=== PATIENT | male | born 1990 | race Caucasian/White ===

== ENCOUNTER 2017-11-20 16:22 | Emergency (ER) | payer MEDICAID, SELFPAY ==
[2017-11-20 16:23] VITALS: BP 142/84; PULSE 91; RESP 18; TEMP 36.6; O2SAT 99; BMI 23.1
--- NOTE | 2017-11-20 16:58 | ED.VISSUMM ---
- ER Visit Summary Date of Service: 11/20/17 Chief Complaint: Laceration volar surface left little finger History of Present Illness: The patient is a 27 M who is right-handed presents with laceration volar surface left little finger. This occurred at home with steak knife. Last tetanus immunization was 3-4 years ago. He denies paresthesia, anesthesia motors. He denies limitation of movement. He has no other complaints. Is on no anticoagulant. He does not give history of using easily or bleeding problems. He has no other complaints. Physical Examination: There is a 8 mm superficial laceration volar surface left little finger over the volar fat pad. There is no subungual hematoma. Sensation is normal. Capillary refill is normal. Flexor digitorum superficialis and flexor digitorum profundus are intact. There is no evidence infection. Test Results: None are indicated Emergency Department Course and Treatment: Cleansing of wound, Steri-Stripped and dressing per nursing staff Treatment Plan: Home-going instructions for superficial laceration Disposition: Discharged to home in stable improved condition Impression: 0.8 cm laceration left little finger initial encounter This note was generated with [employer] dictation software. It may contain incorrect words, spelling, and punctuation that were not noted in review of the chart prior to signing ED Disposition - Plan for ED Patient: Disposition: Home or Assisted Living Chief Complaint: Laceration Instructions: ED Laceration Small Superf No Sutr Referrals: Chasity Hood DO [Primary Care Provider] - As Needed
== END 2017-11-20 17:11 | disposition home or self-care (01) ==
PROVIDERS: Emergency Provider Emergency Medicine
DX: S61.217A Laceration without foreign body of left little finger without damage to nail, initial encounter (principal); Z72.0 Tobacco use; W26.0XXA Contact with knife, initial encounter; Y93.89 Activity, other specified; Y92.009 Unspecified place in unspecified non-institutional (private) residence as the place of occurrence of the external cause; Y99.8 Other external cause status
CPT/HCPCS: 99282

== ENCOUNTER 2018-05-21 09:03 | Emergency (ER) | payer BC, MEDICAID, SELFPAY ==
[2018-05-21 09:04] VITALS: BP 129/70; PULSE 71; RESP 17; TEMP 36.7; O2SAT 97; BMI 24.8
--- NOTE | 2018-05-21 09:26 | ED.DCSUM_ITS ---
- ER Visit Summary Date of Service: 05/21/18 Chief Complaint: Back pain History of Present Illness: The patient is a 28 M with low back pain. The pain started this morning. He thinks it was worse after working on his car yesterday no other inciting events. No traumas. No history of this in the past. The pain is over his bilateral lower back and does not radiate. No abdominal pain or GI symptoms. No urinary symptoms. No neurologic symptoms like weakness or numbness. No loss of bowel or bladder control. No rash or other lesions noted. No fever or systemic symptoms. No recent illness. No immune compromise or drug abuse. No history of back surgery. Physical Examination: Afebrile and vital signs unremarkable. The patient appears uncomfortable but is not toxic or in distress. Abdomen soft and nontender. Lumbar spine is diffusely tender to palpation. Bilateral paraspinal muscles are also tender. Overlying skin appears normal. Straight leg raise negative. Strength sensation normal. Test Results: None indicated Emergency Department Course and Treatment: Patient was treated with Norflex and Toradol. He will be discharged with a course of naproxen and Flexeril. He was given a work note. Follow-up with primary care. Return for any new or worsening issues. Treatment Plan: As above Disposition: Discharge Impression: 1. Lumbar back pain This note was generated with [employer] dictation software. It may contain incorrect words, spelling, and punctuation that were not noted in review of the chart prior to signing ED Disposition - Plan for ED Patient: Chief Complaint: Back Referrals: Chasity Hood DO [Primary Care Provider] -
--- NOTE | 2018-05-21 09:26 | ED.DEP ---
ED Disposition - Plan for ED Patient: Chief Complaint: Back Instructions: ED Sprain Strain Lumbar Prescriptions: Naproxen [Naprosyn] 500 mg PO BID #14 tab Cyclobenzaprine [Flexeril] 10 mg PO TID PRN #20 tab PRN Reason: Muscle Spasm Referrals: Chasity Hood DO [Primary Care Provider] -
[2018-05-21] MEDS: Ketorolac 60 MG/2 ML Vial IM (09:29)
[2018-05-21] MEDS: Orphenadrine 60 MG/2 ML Ampul IM (09:29)
--- OUTSIDE RECORDS SUMMARY | 2018-08-22 12:53 | XMS RPT_ITS ---
:1990 Author Organization [facility] Care Team Providers Name Role Phone Chasity Hood Primary Care Unavailable Eliseo Owens Attending Unavailable Hiren Ortiz Attending Unavailable Chasity Hood Primary Care Unavailable PROBLEMS PROBLEMS No Problem Records FoundPROCEDURES PROCEDURES No Procedure Records FoundRESULTS RESULTS EMERGENCY DEPARTMENT Observed: 05/21/2018 Status: F Source: SEDALIA SUMMARY 9:44 AM [facility] Medical Records Department [address] [place] [id number] Emergency Department Summary 05/21/18 0924 MR#: [id number] Acct: [id number] Name: ASHANTI RUTHERFORD Rep #: [id number] : 1990 28 From: Eliseo Owens MD PCP: Chasity Hood DO Status: PRE ER - ER Visit Summary Date of Service: 05/21/18 Chief Complaint: Back pain History of Present Illness: The patient is a 28 M with low back pain. The pain started this morning. He thinks it was worse after working on his car yesterday no other inciting events. No traumas. No history of this in the past. The pain is over his bilateral lower back and does not radiate. No abdominal pain or GI symptoms. No urinary symptoms. No neurologic symptoms like weakness or numbness. No loss of bowel or bladder control. No rash or other lesions noted. No fever or systemic symptoms. No recent illness. No immune compromise or drug abuse. No history of back surgery. Physical Examination: Afebrile and vital signs unremarkable. The patient appears uncomfortable but is not toxic or in distress. Abdomen soft and nontender. Lumbar spine is diffusely tender to palpation. Bilateral paraspinal muscles are also tender. Overlying skin appears normal. Straight leg raise negative. Strength sensation normal. Test Results: None indicated Emergency Department Course and Treatment: Patient was treated with Norflex and Toradol. He will be discharged with a course of naproxen and Flexeril. He was given a work note. Follow-up with primary care. Return for any new or worsening issues. Treatment Plan: As above Disposition: Discharge Impression: 1. Lumbar back pain This note was generated with [employer] dictation software. It may contain incorrect words, spelling, and punctuation that were not noted in review of the chart prior to signing ED Disposition - Plan for ED Patient: Chief Complaint: Back Referrals: Chasity Hood DO [Primary Care Provider] - What to do if you have Problems For any increased pain, shortness of breath, bleeding, nausea or vomiting, chest pain, or any unexpected problems, contact your Primary Care Provider. Call [facility] ([phone]) or report to the closest Emergency Room. Call 911 if necessary. 05/21/18 0944 <Electronically signed by Eliseo Owens MD> Date Eliseo Owens MD Cosigner Signature (If Indicated): Date CC: Chasity Hood DO DISCHARGE INSTRUCTION Observed: 05/21/2018 Status: F Source: RADHA 9:44 AM [facility] Medical Records Department [address] [place] [address] Discharge Instruction 05/21/1826 MR#: [id number] Acct: [id number] Name: ASHANTI RUTHERFORD Sam Rep #: [id number] : 1990 28 From: Eliseo Owens MD PCP: Chasity Hood DO Status: PRE ER ED Disposition - Plan for ED Patient: Chief Complaint: Back Instructions: ED Sprain Strain Lumbar Prescriptions: Naproxen [Naprosyn] 500 mg PO BID #14 tab Cyclobenzaprine [Flexeril] 10 mg PO TID PRN #20 tab PRN Reason: Muscle Spasm Referrals: Chasity Hood DO [Primary Care Provider] - What to do if you have Problems For any increased pain, shortness of breath, bleeding, nausea or vomiting, chest pain, or any unexpected problems, contact your Primary Care Provider. Call [facility] ([phone]) or report to the closest Emergency Room. Call 911 if necessary. 05/21/18 0944 <Electronically signed by Eliseo Owens MD> Date lEiseo Owens MD Cosigner Signature (If Indicated): Date CC: Chasity Hood DO EMERGENCY DEPARTMENT Observed: 11/20/2017 Status: F Source: SEDALIA SUMMARY 5:00 PM [facility] Medical Records Department [address] [place] [address] Emergency Department Summary 11/20/17 1658 MR#: [id number] Acct: [id number] Name: ASHANTI RUTHERFROD Rep #: [id number] : 1990 27 From: Hiren Ortiz MD PCP: Chasity Hood DO Status: PRE ER - ER Visit Summary Date of Service: 11/20/17 Chief Complaint: Laceration volar surface left little finger History of Present Illness: The patient is a 27 M who is right- handed presents with laceration volar surface left little finger. This occurred at home with steak knife. Last tetanus immunization was 3-4 years ago. He denies paresthesia, anesthesia motors. He denies limitation of movement. He has no other complaints. Is on no anticoagulant. He does not give history of using easily or bleeding problems. He has no other complaints. Physical Examination: There is a 8 mm superficial laceration volar surface left little finger over the volar fat pad. There is no subungual hematoma. Sensation is normal. Capillary refill is normal. Flexor digitorum superficialis and flexor digitorum profundus are intact. There is no evidence infection. Test Results: None are indicated Emergency Department Course and Treatment: Cleansing of wound, Steri-Stripped and dressing per nursing staff Treatment Plan: Home-going instructions for superficial laceration Disposition: Discharged to home in stable improved condition Impression: 0.8 cm laceration left little finger initial encounter This note was generated with [employer] dictation software. It may contain incorrect words, spelling, and punctuation that were not noted in review of the chart prior to signing ED Disposition - Plan for ED Patient: Disposition: Home or Assisted Living Chief Complaint: Laceration Instructions: ED Laceration Small Superf No Sutr Referrals: Chasity Hood DO [Primary Care Provider] - As Needed What to do if you have Problems For any increased pain, shortness of breath, bleeding, nausea or vomiting, chest pain, or any unexpected problems, contact your Primary Care Provider. Call [facility] ([phone]) or report to the closest Emergency Room. Call 911 if necessary. 11/20/17 1700 <Electronically signed by Hiren Ortiz MD> Date Hiren Ortiz MD Cosigner Signature (If Indicated): Date CC: Kinza Salcido MD; Chasity Hood DO ALLERGIES ALLERGIES DATE TYPE / CODE NAME / CODE REACTION SEVERITY SOURCE 05/21/2018 Miscellaneous MUSHROOMS Hives Unknown Radha Allergy/[id number]([facility]OM[facility]) Hospital Repository ENCOUNTERS ENCOUNTERS ADMIT/DISCHARGE ACCOUNT ADMITTING ENCOUNTER LOCATION SOURCE NUMBER CLASS 05/21/2018/ [id number] Emergency [address] ing:ED Repository 11/20/2017/ [id number] Emergency [place] ing:ED Repository PAYERS PAYERS ENCOUNTER GUARANTOR PAYER SUBSCRIBER SOURCE 05/21/2018 ASHANTI D Primary ASHANTI D Radha [id number] Insurance:CARESOURCEP HAYNAMDOB: [facility] ALLI garcia Number: [id number] [id number] Repository [address]Ism: (330) Date:2018-05-21P O [phone] () [address]ATTN: [place] [address]EU: 05/21/2018 Secondary NOT GIVENUNK [place] Insurance:SELF PAY [facility] Number: Effective Repository Date:2018-05-21 11/20/2017 ASHANTI D Primary ASHANTI D [place] [id number] Insurance:CARESOURCEP HAYNAMDOB: [facility] ALLI schulz Number: [id number] [address] [id number] Repository [address]Wlt: (330) Date:2017-11-20P O [phone] () [address]ATTN: [place] [address]JJ: 11/20/2017 Secondary NOT GIVENUNK [place] Insurance:SELF PAY [facility] Number: Effective Repository Date:2017-11-20
== END 2018-05-21 09:55 | disposition home or self-care (01) ==
LOC: ED 09:52
PROVIDERS: Emergency Provider Emergency Medicine
DX: M54.5 Low back pain (principal); Z72.0 Tobacco use
CPT/HCPCS: 96372; 99282

== ENCOUNTER → 2019-05-08 12:27 | Outpatient (CLI) | payer MEDICAID, SELFPAY ==
--- NOTE | 2019-05-08 17:48 | NEURO ---
NCS and/or EMG Patient Report HPI: Patient is a 29-year-old male who presented with complains of intense pain and cramping in the right leg at random.Patient had surgery for bone spur removal in the right knee as a teenager and since that time he had dullness to touch down outside of the calf. Current symptoms has been present for 3-month. No H/O back injury or right leg injury, no H/O diabetes. Physical examination: Mild sensitivity and tenderness in the right lateral lower extremity below knee. Slightly decreased sensation to light touch in the right lateral lower extremity below knee. Findings: 1. Normal nerve conduction studies of the right lower extremity including sural and superficial sensory and common peroneal and tibial motor nerves. 2. Normal needle examination of the right lower extremity. Impression Normal EMG and nerve conduction study of right lower extremity. Recommendation Clinical correlation and appropriate work-up is recommended.
== END ==
PROVIDERS: Family Provider Internal Medicine; PCP Internal Medicine; Referring Provider Nurse Practitioner Primary Care; Visit Provider Nurse Practitioner Primary Care
DX: R25.2 Cramp and spasm (principal); M79.604 Pain in right leg
CPT/HCPCS: 95886; 95908

== ENCOUNTER 2020-07-14 18:51 | Emergency (ER) | payer MEDICAID, SELFPAY ==
[2020-07-14 18:52] VITALS: BP 133/84; PULSE 74; RESP 16; TEMP 35.8; O2SAT 100; BMI 26.6
--- NOTE | 2020-07-14 19:36 | ED.VISSUMM ---
- ER Visit Summary Date of Service: 07/14/20 Chief Complaint: [] Back pain History of Present Illness: The patient is a 30 M [presents to the emergency department complaint of back pain that started approximately 4 PM today. Patient states that he was building a shelf for his when he twisted awkwardly and felt a pop in his back. Patient is complaining of pain since that time. Patient has history of chronic back pain and had been in pain management and is actually scheduled to see a new pain management physician Dr. Navarro on July 25. Patient states that he had an MRI 3 months ago that showed some disc herniations at L1-L2 and L5-S1 and the did show me the MRI report. Patient had seen a surgeon who recommended surgery but they would like to get a second opinion and due to insurance issues he cannot have surgery till October of this year. Patient denies any pain rating down his legs. He denies weakness in extremities. He denies change in bowel or bladder function. He denies recent illness.] Physical Examination: [HEENT-PERRLA, EOMI. Cranial nerves II through XII grossly intact. TMs clear. Mucous membranes moist. No adenopathy. Cardiovascular-regular rate and rhythm without murmur or ectopy Lungs-clear to auscultation, chest wall stable without crepitus or subcu emphysema Abdomen-normoactive bowel sounds, soft, nontender, no rebound or rigidity, no peritoneal signs. Back exam-patient has no bony tenderness on exam of the thoracic or lumbar spine. Patient has negative straight leg raises. Deep tendon reflexes are plus 1 out of 4 bilaterally at the patella and Achilles. Patient has normal 5 extension. Patient has decreased sensation to the right leg lateral aspect which is a chronic finding for him. Extremities-intact ?4, normal range of motion, normal pulses, atraumatic] Test Results: [None indicated] Emergency Department Course and Treatment: [Patient received Toradol 60 mg IM as well as Norflex 60 mg IM. Patient received Dilaudid 1 mg IM.] Treatment Plan: [Patient will be given a prescription for [place], Flexeril, and naproxen. He is advised to follow-up with pain management and also will refer to back specialist to Dr. Parham.] Disposition: [Discharged home in stable condition] Impression: [Lumbar strain Acute exacerbation of chronic back pain] This note was generated with [employer] software. It may contain incorrect words, spelling, and punctuation that were not noted in review of the chart prior to signing ED Disposition - Plan for ED Patient: Referrals: Kinza Salcido MD [Primary Care Provider] -
--- NOTE | 2020-07-14 19:38 | DCINST.ED_ITS ---
ED Disposition - Plan for ED Patient: Instructions: ED Back Sprain/Strain, ED Back Pain (Acute or Chronic) Prescriptions: cycloBENZAPRine HCl [Flexeril] 10 mg PO TID PRN #20 tab PRN Reason: Muscle Spasm Prescription Printed Naproxen [Naprosyn] 500 mg PO BID PRN #20 tab Prescription Printed Hydrocodone Bitart/Apap 5-325 [[place] 5MG-325MG] 1 tab PO Q4H PRN PRN 2 Days #20 tab PRN Reason: Pain Prescription Printed Referrals: Kinza Salcido MD [STAFF PHYSICIAN] - Fritz Parham DO [STAFF PHYSICIAN] - 3-5 Days
[2020-07-14] MEDS: Ketorolac 60 MG/2 ML Vial IM (19:50)
[2020-07-14] MEDS: HYDROmorphone 1 MG/ML Syringe IM (19:50)
[2020-07-14] MEDS: Orphenadrine 60 MG/2 ML Ampul IM (19:51)
[2020-07-14 19:57] VITALS: RESP 17
== END 2020-07-14 20:11 | disposition home or self-care (01) ==
LOC: ED 19:37
PROVIDERS: Emergency Provider Emergency Medicine; PCP Nurse Practitioner Primary Care
DX: S39.012A Strain of muscle, fascia and tendon of lower back, initial encounter (principal); G89.29 Other chronic pain; F17.200 Nicotine dependence, unspecified, uncomplicated; X58.XXXA Exposure to other specified factors, initial encounter
CPT/HCPCS: 96372; 99282

== ENCOUNTER → 2020-08-24 12:44 | Outpatient (CLI) | payer MEDICAID, SELFPAY ==
--- NOTE | 2020-08-24 12:46 | MRI_ITS ---
STUDY: MRI LUMBAR SPINE WITHOUT CONTRAST REASON FOR EXAM: Male, 30 years old. Low back pain. TECHNIQUE: Standardized fat and water weighted pulse sequences were obtained in the sagittal and axial planes. COMPARISON: None FINDINGS: T11-T12: (Sagittal only). Normal endplates. Normal disc height, hydration and morphology. No ventral extradural defect. Normal central canal and bilateral intervertebral neural foramina. T12-L1: (Sagittal only). Normal endplates. Normal disc height, hydration and morphology. No ventral extradural defect. Normal central canal and bilateral intervertebral neural foramina. Normal lumbar lordosis. There is no substantial scoliosis. Normal conus medullaris that terminates at the lower L1 vertebral body level. L1-2: Mild MODIC type I degenerative vertebral marrow edema underneath the posterior aspect of the adjacent vertebral endplates. Mild posterior disc space height narrowing. Small right posterior paramedian annular fissure underneath the bulging annulus. Normal central canal and bilateral lateral recesses. Normal facet joints. Normal bilateral intervertebral neural foramina. L2-3: Normal endplates. Normal disc height, hydration and morphology. Normal bilateral facet joints. Normal central canal and bilateral lateral recesses. Normal bilateral intervertebral neural foramina. L3-4: Normal endplates. Mild disc space height narrowing. Small posterior bulging disc. Mild central canal stenosis with an AP canal diameter of 8.6 mm. Prominent dorsal epidural lipomatosis. Normal bilateral lateral recesses. Normal facet joints. Normal bilateral intervertebral neural foramina. L4-5: Normal endplates. Normal disc height, hydration and morphology. Normal bilateral facet joints. Normal central canal and bilateral lateral recesses. Normal bilateral intervertebral neural foramina. L5-S1: Mild MODIC type II degenerative vertebral marrow fatty changes underneath the vertebral endplates. Moderate disc space height narrowing. Small right posterior paramedian disc protrusion. Mild central canal stenosis with an AP canal diameter of 8.4 mm. Normal bilateral lateral recesses. Normal facet joints. Normal bilateral intervertebral neural foramina. Normal visualized sacral ala. Normal visualized paraspinous soft tissue structures. MRI/Spine Lumbar (Routine) IMPRESSION: 1. Small right L5-S1 posterior paramedian disc protrusion and mild central canal stenosis. The AP canal diameter is 8.4 mm. 2. Mild central canal stenosis at L3-L4 disc level with an AP canal diameter of 8.6 mm and small posterior bulging disc. 3. Small right posterior paramedian annular fissure underneath the bulging annulus at the L1-L2 disc space level and mild MODIC type I degenerative vertebral marrow edema underneath the posterior aspect of the adjacent vertebral endplates. 4. No MRI evidence of lumbar extruded disc fragment. Electronically Signed: Nilson Caceres MD at 15:39 EDT , Service support ,
== END ==
PROVIDERS: PCP Nurse Practitioner Primary Care; Referring Provider Orthopaedic Surgery; Visit Provider Orthopaedic Surgery
DX: M51.26 Other intervertebral disc displacement, lumbar region (principal)
CPT/HCPCS: 72148

== ENCOUNTER 2020-10-18 05:32 | Inpatient (IN) | payer MEDICAID, SELFPAY ==
[2020-10-12 08:42] VITALS: BMI 25.8
--- NOTE | 2020-10-12 10:02 | EKG12_ITS ---
Test Reason : PRE OP Blood Pressure : / mmHG Vent. Rate : 077 BPM Atrial Rate : 077 BPM P-R Int : 152 ms QRS Dur : 100 ms QT Int : 374 ms P-R-T Axes : 030 082 048 degrees QTc Int : 423 ms Normal sinus rhythm with sinus arrhythmia Normal ECG Confirmed by ELIJAH COLE, PASHA ([id number]), commercial production editor PITER GONZALEZ ([id number]) on 10/13/2020 1:54:01 PM Referred By: MAKENZIE Confirmed By:PASHA NAVA MD
[2020-10-12 10:50] LABS: Absolute Lymphocyte Count 2.24 X10^3/uL (0.83-4.51); Absolute Neutrophil Count 2.9 X10^3/uL (2.0-7.7); Basophil# 0.03 X10^3/uL; Basophil% 0.5 % (0-1); Eosinophil# 0.13 X10^3/uL; Eosinophils% 2.2 % (0-5); Hematocrit 51.3 % (40-54); Hemoglobin 16.6 g/dL (13.0-16.5); Lymphocyte # 2.24 X10^3/ul (0.83-4.51); Lymphocyte % 37.8 % (19-41); Mean Corp Hgb Conc 32.4 g/dL (32-36); Mean Corpuscular Hgb 28.9 pg (27.0-32.0); Mean Corpuscular Volume 89.4 fL (80-94); Mean Platelet Vol. 11.3 fl (6.2-12.0); Monocyte# 0.57 X10^3/uL; Monocyte% 9.6 % (0-10); NRBC Flagged by Analyzer 0 % (0-5); Neutrophil # 2.93 X10^3/uL (2.7-7.7); Neutrophil % 49.6 % (47-70); Platelet Count 224 K/mm3 (150-450); RBC Distribution Width CV 12.2 % (11.6-14.6); RBC Distribution Width SD 40.1 fl (35.1-43.9); Red Blood Count 5.74 M/mm3 (4.6-6.2); White Blood Count 5.9 K/mm3 (4.4-11.0)
[2020-10-12 11:17] LABS: Magnesium 2.4 mg/dL (1.6-2.6)
[2020-10-12 11:26] LABS: Anion Gap 3 (5-15); BUN 9 mg/dL (7-18); BUN/Creat Ratio 10.3 RATIO (10-20); Calcium,Total 8.8 mg/dL (8.5-10.1); Chloride 107 mmol/L (98-107); Creatinine, Serum 0.88 mg/dL (0.70-1.30); EST Glomerular Filtration Rate 107 mL/min (>60); Est Glom Filt Rate - Afr Amer 130 mL/min (>60); Glucose 82 mg/dL (74-106); Potassium 3.9 mmol/L (3.5-5.1); Sodium Level 139 mmol/L (136-145)
[2020-10-12 11:49] LABS: HIV - WCH Non-Reactive (Nonreactive)
[2020-10-13 08:09] LABS: HEPATITIS B SURFACE AG Negative (Negative); Hepatitis A AB, Total Negative (Negative); Hepatitis A IgM Antibody Negative (Negative); Hepatitis B Core AB IgM Negative (Negative); Hepatitis B Core Ab Total Negative (Negative); Hepatitis C Ab <0.1 s/co ratio (0.0-0.9)
[2020-10-13 15:26] LABS: Hep B Surface Antibodies Reactive (.)
[2020-10-18] VITALS (11 sets, daily range): BP systolic 102–137; BP diastolic 68–97; PULSE 61–94; RESP 16–18; TEMP 36.3–37; O2SAT 98–100; BMI 25.3
[2020-10-18] MEDS: Lactated Ringers 1,000 ML 100 ML IV ×2 (06:17→15:56)
[2020-10-18] MEDS: Acetaminophen 500 MG Tablet 1000 MG PO (06:18)
[2020-10-18] MEDS: THROMBIN (RECOMBINANT) 20,000 UNIT VIAL 20000 UNIT TOPICAL (06:45)
[2020-10-18] MEDS: Heparin 10,000 UNITS/10 ML Vial 10000 UNITS (06:45)
[2020-10-18 07:00] LABS: Bedside Glucose 87 mg/dL (70-110)
--- NOTE | 2020-10-18 07:30 | DISC_PTH ---
PATIENT: ASHANTI RUTHERFORD LOC: MS3 U#:[id number] AGE/SX: 30/M [place] [facility] [place]: Dr. Andrew Moreira MD : 1990 BED: 1 DIS: 10/21/2020 SPEC #: [id number] RECD: 10/18/20 14:40 STATUS: BRANDIE REQ #: [id number] DOMINIC: 10/18/20 07:[address]: Fritz Parham DEPT: SURGICAL PATHOLOGY RECD BY: Monse Azar ENTERED: 10/19/20 09:42 SP TYPE: DISC OTHR DR: MD Dr. Fritz Munoz DO Dr. Nana Yaa Koram, MD Jamie George, SAFETY EQUIPMENT TESTING SPECIALIST-C Tissues: Intervertebral disc, NOS Procedures: Surgery Specimen Level III Comments: @ Ordering doctor for SUIII edited from to @ by PATI at 10/19/20 1407 @ Submitting doctor edited from to @ by RGOOD at 10/19/20 1407 HEADER OPERATION: ERAS, 360 fusion lumbar 5, sacral 1 PRE-OP DIAGNOSIS: Herniated nucleus pulposus, lumbar TISSUE SUBMITTED: Lumbar disc MICROSCOPIC DIAGNOSIS Lumbar disc, discectomy: Fragments of intervertebral disc with degenerative change. AM:connor 10/20/2020 MICROSCOPIC DESCRIPTION Slides are reviewed. GROSS DESCRIPTION Received in fixative is one container labeled with the patient's name and designated lumbar disc. The specimen consists of multiple pieces of winston, indurated tissue that in aggregate measure 4.5 x 4 x 2 cm. Speech Language Pathologist Travel sections are submitted in two cassettes. / SJ:connor 10/19/20 TC:5 CPT: 11537
--- NOTE | 2020-10-18 07:30 | RAD_ITS ---
STUDY: X-RAY - LUMBAR SPINE REASON FOR EXAM: Male, 30 years old. 360 FUSION L5-SI TECHNIQUE: Single lateral view(s) of the lumbar spine were obtained. COMPARISON: None FINDINGS: Single lateral lumbar spine x-ray was performed after the patient has undergone anterior fusion between L5 and S1. Alignment is anatomic. Hardware is intact and free of complication. RAD/Spine 1 View Any Level IMPRESSION: Status post anterior fusion between L5 and S1. Hardware is intact and free of complication Electronically Signed: Cullen Davis MD at 10:40 EDT , Service support ,
[2020-10-18] MEDS: Cefazolin 2 GM in 0.9% Normal Saline 100 ML IV (07:45)
--- NOTE | 2020-10-18 09:10 | RAD_ITS ---
STUDY: X-RAY - LUMBAR SPINE REASON FOR EXAM: Male, 30 years old. 360 FUSION L5-S1 TECHNIQUE: Single lateral intraoperative view(s) of the lumbar spine were obtained. COMPARISON: None FINDINGS: Single lateral intraoperative view of the lumbar spine was performed as the patient has undergone L5/1 fusion surgery. An anterior marker has been placed at the L5/1 disc space. RAD/Spine 1 View Any Level IMPRESSION: No suspicious findings, marker placed anteriorly between L5 and S1. Electronically Signed: Cullen Davis MD at 10:12 EDT , Service support ,
--- NOTE | 2020-10-18 10:40 | PCM.OPRPT ---
Report of Operation Date of Procedure: 10/18/20 Description of Surgical Findings:: Preoperative diagnosis: Herniated disc L5-S1 Procedures: Below Planned surgery: Anterior #1 anterior lumbar interbody fusion L5-S1 CPT # 61471 #2 anterior spine plate L5-S1 CPT # 70993/59 (not integral to cage) Hence Modifier 59 #3 Insertion of cage L5-S1 CPT # 03347 Planned surgery: Posterior #1 posterior lumbar fusion L5-S1 CPT # 84243 #2 Internal nonsegmental fixation L5-S1 CPT # 67707 Cosurgeons: Dr. Parham and Dr. Lay Logging Supervisor: GIOVANI Morgan Anesthesia: General endotracheal anesthesia administered by [facility] Estimated blood loss: Less than 100 cc Drains: None Complications: None Procedure: Patient was taken to the OR where he was placed in supine position on the operating table he was then placed under general endotracheal anesthesia once properly positioned a Juares catheter was inserted and neuro monitoring placed their leads and the patient. The abdomen was then prepped and draped in standard fashion. The surgical approach is then described in Dr. Lay's operative summary. Once Dr. Lay had good access to the L5-S1 an intraoperative x-ray was taken to confirm our level. Then remove the anterior annulus with a 10 blade removed it and removed more nucleus from within the disc space with pituitary rongeurs. I then used curettes to curette the cartilage off both endplates this were both ring curettes and bowl curettes. Once this was done I used a 6 mm derian bur to square up the sides to make room for the cage. Also removed some of the posterior lipping with this device. Note that after burring we always placed cool saline in the wound to cool down the heated bone and cool down the bur. I then started taking measurements we used the trials and found that we needed a small trial that is a 25 x 35 8 degree 12 mm high trial. Following this I then used the broach both the 10 mm at first and then 12 mm broach to broach the space and get good bleeding endplate. In the interim her PA went ahead and got the bone marrow aspirate from the left anterior superior iliac spine. He did this by placing a needle in place this was a Jamshidi needle. Once he had it down in the bone marrow he went ahead and aspirated 60 cc of bone marrow aspirate. This was handed off to the pulmonary function technician in the room. She then spun it down concentrated the cells about 10 times and gave us back only the patient's concentrated stem cells. Using cautery I then cauterized the anterior longitudinal ligament and periosteum off of the anterior lips above the bottom of L5 and the top of S1. Using double-action rongeurs I remove the anterior spurs. We then took the 12 mm cage and filled it with spongy demineralized bone matrix on each half of the cage. This was then soaked in the patient's concentrated stem cells and it was then tamped into place and countersunk a couple of millimeters at the L5-S1 space. We then use a 25 mm anterior spine plate centered at we used 30 mm screws into L5 and 25 mm screws into S1. This was done by first using the awl to punch a hole followed by the insertion of each individual screw. Once they were in place we then will activated the locking mechanisms above and below. An intraoperative x-ray was taken the demonstrated excellent position of the cage the plate and the screws. We then placed a amnionic membrane over the plate to prevent adhesions onto the great vessels. Then as we removed the retractors we could see the great vessels following right on top of the amniotic membrane. The closure is then described in Dr. Lay's operative summary. This the end of operative summary on Ajay Jimenez. Is Dr. Parham dictating.
[2020-10-18] MEDS: Thrombin 5,000 IU Kit (PSA) 5,000 IU Vial 5000 IU TOPICAL (11:10)
--- NOTE | 2020-10-18 11:45 | RAD_ITS ---
STUDY: X-RAY - LUMBAR SPINE REASON FOR EXAM: Male, 30 years old. Intraoperative fusion TECHNIQUE: Single lateral view(s) of the lumbar spine were obtained. COMPARISON: None FINDINGS: Single lateral intraoperative study was performed as the patient is undergoing anterior cervical fusion between L5-S1. Alignment is anatomic and there is no plain film evidence of hardware complication. Surgical instrumentation noted posterior to the sacrum. RAD/Spine 1 View Any Level IMPRESSION: No intraoperative complications noted. Electronically Signed: Cullen Davis MD at 12:06 EDT , Service support ,
--- NOTE | 2020-10-18 11:50 | RAD_ITS ---
STUDY: X-RAY - LUMBAR SPINE REASON FOR EXAM: Male, 30 years old. IMAGE 4 IN OR TECHNIQUE: Single lateral intraoperative view(s) of the lumbar spine were obtained. COMPARISON: None FINDINGS: Single lateral intraoperative view lumbar spine performed as the patient is undergoing fusion at L5/S1. Alignment is anatomic, no hardware complications noted. RAD/Spine 1 View Any Level IMPRESSION: Intraoperative anterior fusion at L5/S1, no demonstrated complications Electronically Signed: Cullen Davis MD at 12:07 EDT , Service support ,
--- NOTE | 2020-10-18 12:10 | PCM.OPRPT ---
Problems Associated Problem List Diagnoses (1) HNP (herniated nucleus pulposus), lumbar: Report of Operation Date of Procedure: 10/18/20 Pre-Operative Diagnosis: Herniated disc L5-S1 Post-Operative Diagnosis: The same Surgery/Procedure Performed:: 1. Anterior lumbar interbody fusion L5-S1. 2. Anterior plate L5-S1. 3. Cage placed at L5-S1. Type of Anesthesia: General/Regional Estimated Blood Loss (mL): Less than Description of Procedure: Co-surgeon Dr. Parham and Dr. Robert Lay Operation: Patient brought to the operating room. Underwent general anesthesia. Given appropriate antibiotics. Operative monitoring lines were placed. Was prepped and draped in a sterile fashion. We did a left lower quadrant incision and dissected down onto the anterior fascia. This was incised and opened just to the midline and laterally past the rectus into the obliques. We then raised up a flap of the superior and inferior part of the rectus sheath. Then lateral to the rectus we got into the retroperitoneal plane down onto the iliopsoas muscle. We put in an Omni retractor and with blunt dissection down onto the L5-S1 disc space. Several venous and middle sacral vessels were ligated between clips. We had good visualization of the space. We put a needle in and confirm that we are in the L5-S1 disc space. Patient then underwent the discectomy through here. Trials were placed out of 10 and 12 mm. And then a broach was used through this space. Also drill was used and freed up along the endplates. Also and freed up along the anterior longitudinal ligaments into L5 and S1 for placement of the plate. Bone marrow aspirate was obtained from the left anterior superior leg spine. We then placed the cage which was a small 12 mm 8 degree in good position. The anterior plate was positioned with 2 screws 30 mm into L5 and 225 mm into S1. There is good hemostasis. Film was placed over the cage. Retractors were released and there is good hemostasis noted. Did a completion x-ray showing good position of this and the screws. We then closed the fascia with a running strata fix. And then Vicryl in layers and Monocryl for the skin. Dermabond was placed. He was then be flipped and the posterior all be done separately Complications None
--- NOTE | 2020-10-18 12:15 | RAD_ITS ---
STUDY: X-RAY - LUMBAR SPINE REASON FOR EXAM: Male, 30 years old. Postoperative evaluation. TECHNIQUE: 1 view(s) of the lumbar spine were obtained. COMPARISON: 10/18/2020 FINDINGS: L5-S1 disc spacer. L5-S1 anterior fixation. L5-S1 facet joint spacer. No acute fracture, dislocation or osseous destruction. Postoperative soft tissues. RAD/Spine 1 View Any Level IMPRESSION: Uncomplicated L5-S1 postsurgical changes Electronically Signed: Alex Underwood DO at 12:51 EDT Tel , Service support ,
[2020-10-18] MEDS: Morphine 4 MG/ML Syringe IV (15:47)
[2020-10-18] MEDS: Gabapentin 300 MG Capsule PO ×2 (15:48→21:27)
[2020-10-18] MEDS: 0.9% NaCl Peripheral Flush Adult/Peds IV (15:48)
[2020-10-18] MEDS: Cefazolin 1 GM/50 ML BAG IV ×2 (15:57→23:56)
--- NOTE | 2020-10-18 16:45 | CON.PCM.HO_ITS ---
Documented by User: Lg MATUTE 10/18/20 16:55 Assessment & Plan Assessment/Plan (1) HNP (herniated nucleus pulposus), lumbar: PLAN: 1) HNP s/p L5-S1 fusion On my exam patient appears still acutely confused after procedure. Does report moderate pain, however currently feels responsive to current pain regimen. Patient observed to walk about 100 feet with physical therapy, and needed to sit down in the chair and returned to the room due to exhaustion. Will continue to follow for Dr. Parham. Patient seen by Lg Ochoa PA-C, under the supervision of Dr. Louis. HPI Consult Data Date of Consult: 10/18/20 HPI Narrative HPI Narrative: Patient is a 31-year-old male who underwent spinal fusion of L5- S1 for herniated nucleus pulposus. Patient suffers from chronic low back pain which occasionally radiates to the leg, of unspecified duration. Patient follows with Dr. Parham as an outpatient and it was decided that he would un dergo elective spinal fusion today. [facility] Medical History (Updated 10/12/20 @ 09:[address] Fritz Parham, ) h/o broken arm Smoker Wears contact lenses Wears glasses Home Medications gabapentin 300 mg capsule 300 mg PO TID cap 07/20/20 [History Last Taken 10/17/20] Allergy/AdvReac Type Severity Reaction Status Date / Time MUSHROOMS Allergy Severe Anaphylaxis Uncoded 10/18/20 06:06 Surgical History (Updated 10/04/20 @ 13:46 by Celina Keith) H/O carpal tunnel repair H/O knee surgery History of tonsillectomy and adenoidectomy Hx of wisdom tooth extraction Social History (Updated 09/07/20 @ 10:[address] Fritz Parham, ) adopted: Yes household members: spouse and children housing: house number of children: 2 current occupational status: employed Smoking Status: Heavy Smoker (>10/day) Tobacco: How many years used: 10 alcohol intake: never what type of physical activity do you participate in: none do you feel safe at home: Yes ROS ROS Narrative Unable to obtain reliable review of systems due to patient still being confused from medications given during surgery. Review of Systems ROS Unobtainable: due to mental status Physical Exam Const alert, oriented x3 and no apparent distress General Appearance: cooperative HEENT normocephalic, head/scalp atraumatic, hearing grossly normal bilaterally and moist oral mucous membranes Eyes PERRL, EOMs intact bilaterally and conjunctivae normal Neck no lymphadenopathy, supple and no JVD Resp normal respiratory effort, no retractions, no use of accessory muscles and clear to auscultation bilaterally Cardio regular rate, regular rhythm, no murmurs and no JVD GI normal to inspection, nondistended, normoactive bowel sounds, soft to palpation, non-tender and non-distended Extremity normal to inspection Skin no rashes or lesions noted and no wounds Neuro oriented x3 Sensorium / Orientation: awake, alert and oriented to person Psych affect normal Lab / Micro Data Result Diagrams: 10/12/20 10:31 10/12/20 10:31 Labs: Laboratory Results - last 24 hr 10/18/20 10/18/20 06:02 08:05 POC Glucose 87 Blood Type B POSITIVE Antibody Screen NEGATIVE Radiology Impression Spine X-Ray 10/18/20 07:30 IMPRESSION: Status post anterior fusion between L5 and S1. Hardware is intact and free of complication Electronically Signed: Cullen Davis MD at 10:40 EDT , Service support , Spine X-Ray 10/18/20 09:10 IMPRESSION: No suspicious findings, marker placed anteriorly between L5 and S1. Electronically Signed: Cullen Davis MD at 10:12 EDT , Service support , Spine X-Ray 10/18/20 11:45 IMPRESSION: No intraoperative complications noted. Electronically Signed: Cullen Davis MD at 12:06 EDT , Service support , Spine X-Ray 10/18/20 11:50 IMPRESSION: Intraoperative anterior fusion at L5/S1, no demonstrated complications Electronically Signed: Cullen Davis MD at 12:07 EDT , Service support , Spine X-Ray 10/18/20 12:15 IMPRESSION: Uncomplicated L5-S1 postsurgical changes Electronically Signed: Alex Underwood DO at 12:51 EDT Tel , Service support , Documented by User: Dr. Sandi Louis MD 10/18/20 19:15 HPI Consult Data Date of Consult: 10/18/20 [facility] Medical History (Updated 10/12/20 @ 09:[address] Fritz Parham DO) h/o broken arm Smoker Wears contact lenses Wears glasses Home Medications gabapentin 300 mg capsule 300 mg PO TID cap 07/20/20 [History Last Taken 10/17/20] Allergy/AdvReac Type Severity Reaction Status Date / Time MUSHROOMS Allergy Severe Anaphylaxis Uncoded 10/18/20 06:06 Surgical History (Updated 10/04/20 @ 13:46 by Celina Keith) H/O carpal tunnel repair H/O knee surgery History of tonsillectomy and adenoidectomy Hx of wisdom tooth extraction Social History (Updated 09/07/20 @ 10:[address] Fritz Parham DO) adopted: Yes household members: spouse and children housing: house number of children: 2 current occupational status: employed Smoking Status: Heavy Smoker (>10/day) Tobacco: How many years used: 10 alcohol intake: never what type of physical activity do you participate in: none do you feel safe at home: Yes Lab / Micro Data Result Diagrams: 10/12/20 10:31 10/12/20 10:31 Charges/Coding Visit Charges Inpatient E&M: 91124 Subs Hosp L2 Addendum Patient seen by Lg Ochoa PA-C under my supervision Patient is a 31-year-old male with a history of herniated disc for which he underwent a spinal fusion of L5 and S1 on 10/18/2020. Hospital service was consulted for medical management. Patient seen and examined. He had no complaints and pain was well controlled. Review was otherwise negative. He has remained hemodynamically stable. O/E: onst alert, oriented x3 and no apparent distress General Appearance: cooperative HEENT normocephalic, head/scalp atraumatic, hearing grossly normal bilaterally and moist oral mucous membranes Eyes PERRL, EOMs intact bilaterally and conjunctivae normal Neck no lymphadenopathy, supple and no JVD Resp normal respiratory effort, no retractions, no use of accessory muscles and clear to auscultation bilaterally Cardio regular rate, regular rhythm, no murmurs and no JVD GI normal to inspection, nondistended, normoactive bowel sounds, soft to palpation, non-tender and non-distended Extremity normal to inspection Skin no rashes or lesions noted and no wounds, intact back dressing at surgical site Neuro oriented x3 Sensorium / Orientation: awake, alert and oriented to person Psych affect normal Plan is for patient to work with physical and Occupational Therapy. Continue current pain medication as per primary service. Fall precautions. Continue incentive spirometry. Patient has a history of nicotine dependence so will order nicotine patch 21 mg daily. Rest as per Lg Ochoa PA-C's note which I reviewed and endorsed. Thank you for the courtesy of the consult. Please do not hesitate to contact the hospitalist service with any questions or concerns Inpatient E&M: 71541 Subs Hosp L2
[2020-10-18] MEDS: oxyCODONE 5 MG Tablet PO ×2 (17:19→21:30)
--- NOTE | 2020-10-18 17:51 | OP.PCM_ITS ---
Report of Operation Date of Procedure: 10/18/20 Description of Surgical Findings:: Preoperative diagnosis: Herniated disc with instability L5-S1. Postoperative diagnosis: The same Procedures: #1 posterior lumbar fusion L5-S1 CPT Code #65040 #2 Internal nonsegmental fixation L5-S1 CPT Code #53562 Surgeon: Dr. Parham temporary administrative assistant: Saulo MATUTE Anesthesia: [facility] Estimated blood loss: Less than 30 cc Drains: None Complications: None Procedure: After the anterior procedure was finished the patient was then turned onto the prone position on the Levar frame. Care was taken to protect bony prominences the ulnar nerves of both elbows of brachial plexus and his facial features and genitalia. Once positioned a longitudinal incision was then made over the L5-S1 area. Subcutaneous tissues were incised the length of the skin incision. Using cautery I then opened the lumbar fascia first to the left of the spinous processes. I then marked the space between the 2 posterior processes. X-rays were then taken intraoperatively this was found to be S1-S2. We simply moved up 1 level move the marker up 1 and took another x-ray to confirm that this was indeed L5-S1 which it was. This was then marked with cautery and I elevated the paravertebral muscles off the lamina 5 and the lamina of S1 we did exactly the same thing on the opposite side elevating the paravertebral muscles off the lamina of 5 and the lamina of S1 on the right side. Then removed the interspinous ligament between the 2 spinous processes. An 8 mm spacer was then put in place and up against the lamina after first using the bur to bur both the S1 in the L5 lamina on both sides. Note that prior to this we placed demineralized bone matrix that was soaked in the patient's own stem cells on each side after burring the lamina. The internal fixation device was then applied. It was then locked in place and the locking mechanisms were activated. We had excellent appearance on x-rays. Note that the lamina was not opened thus we did not feel that we needed a drain. The lumbar fascia was then approximated using #1 Vicryl in interrupted fashion. The subcutaneous tissues were then closed in 3 layers using both 0 Vicryl 2-0 Vicryl and 3-0 Vicryl in interrupted fashion. Skin charanjit were used to close the skin itself. Sterile dressings were then applied. The patient was then recovered in the OR and moved to his hospital bed in satisfactory condition. The end of operative summary on Ajay Jimenez. This is Dr. Parham dictating thank you.
[2020-10-18] MEDS: Famotidine 20 MG Tablet PO (21:27)
[2020-10-18] MEDS: Senna/Docusate Sodium 1 Tablet 2 TABLET PO (21:28)
[2020-10-19] MEDS: oxyCODONE 5 MG Tablet PO ×4 (01:42→20:15)
[2020-10-19] MEDS: Lactated Ringers 1,000 ML 100 ML IV ×3 (01:43→23:48)
[2020-10-19 03:00] VITALS: BP 120/84; PULSE 95; RESP 16; TEMP 36.4; O2SAT 100
[2020-10-19] MEDS: Gabapentin 300 MG Capsule PO ×3 (05:23→20:15)
[2020-10-19 05:40] VITALS: RESP 18; O2SAT 98
[2020-10-19] MEDS: Senna/Docusate Sodium 1 Tablet 2 TABLET PO ×2 (07:48→20:16)
[2020-10-19] MEDS: Famotidine 20 MG Tablet PO ×2 (07:48→20:16)
--- NOTE | 2020-10-19 07:48 | PCM.PN.HOSP ---
Subjective Subjective Patient is a 31-year-old male with a history of herniated disc for which he underwent a spinal fusion of L5 and S1 on 10/18/2020 Objective Data Objective Data Vital Signs: Vital Signs Temp Pulse Resp BP Pulse Ox 97.6 F L 95 18 120/84 H 98 10/19/20 03:00 10/19/20 03:00 10/19/20 05:40 10/19/20 03:00 10/19/20 05:40 Oxygen Flow Rate (L/min) 6 Oxygen Delivery Method Room Air Weight: 80.2 kg Body Mass Index (BMI) 25.3 Intake & Output: Intake and Output for Last 24 Hours 10/17/20 10/18/20 10/19/20 23:59 23:59 23:59 Intake Total 4380 / 4380 1728.33 / 1728.33 Output Total 3400 / 3400 2650 / 2650 Balance 980 / 980 -921.67 / -921.67 Lab / Micro Data Result Diagrams: 10/12/20 10:31 10/12/20 10:31 Labs: Laboratory Results - last 24 hr 10/18/20 08:05 Blood Type B POSITIVE Antibody Screen NEGATIVE Micro: Microbiology 10/17/20 10:00 Interface Orders SARS-CoV-2 Antigen (Rapid) - Final 10/12/20 10:31 Swab (Method) Nasal Screen MRSA/MSSA - Final Radiography Diagnostic Testing: Radiology Impression Spine X-Ray 10/18/20 07:30 IMPRESSION: Status post anterior fusion between L5 and S1. Hardware is intact and free of complication Electronically Signed: Cullen Davis MD at 10:40 EDT , Service support , Spine X-Ray 10/18/20 09:10 IMPRESSION: No suspicious findings, marker placed anteriorly between L5 and S1. Electronically Signed: Cullen Davis MD at 10:12 EDT , Service support , Spine X-Ray 10/18/20 11:45 IMPRESSION: No intraoperative complications noted. Electronically Signed: Cullen Davis MD at 12:06 EDT , Service support , Spine X-Ray 10/18/20 11:50 IMPRESSION: Intraoperative anterior fusion at L5/S1, no demonstrated complications Electronically Signed: Cullen Davis MD at 12:07 EDT , Service support , Spine X-Ray 10/18/20 12:15 IMPRESSION: Uncomplicated L5-S1 postsurgical changes Electronically Signed: Alex Underwood DO at 12:51 EDT Tel , Service support , Physical Exam Narrative GENERAL: cooperative HEENT: Atraumatic; EYES; Anicteric, Normal Conjunctiva NECK; supple, normal thyroid, RESPIRATORY: Diminished to auscultation CARDIOVASCULAR: Regular S1 S2, GI: soft, normoactive bowel sounds, : No Renal angle tenderness; EXTREMITIES: No edema, no clubbing, NEURO: Awake; no lateralizing signs. SKIN: No Rash PSYCH; Flat affect Assessment & Plan Assessment/Plan (1) HNP (herniated nucleus pulposus), lumbar: PLAN: Patient is a 31-year-old male with a history of herniated disc for which he underwent a spinal fusion of L5 and S1 on 10/18/2020 1. Herniated disc ?Status post spinal fusion of L5 and S1 on 10/18/2020. Patient postoperative orders including PT OT, DVT prophylaxis and pain management addressed by primary service will follow Visit Charges Inpatient E&M: 02223 Subs Hosp L1
[2020-10-19 07:49] VITALS: O2SAT 98
[2020-10-19 07:57] VITALS: BP 125/88; PULSE 100; RESP 14; TEMP 36.6; O2SAT 99
[2020-10-19] MEDS: traMADol 50 MG Tablet PO (10:30)
--- NOTE | 2020-10-19 11:45 | CASEMGMT ---
RN CM PHP CONSULTANT CM to room to meet with patient for initial transition planning/care coordination assessment. Pt sleeping. , Karime, @ bedside. RN STAN introduced self and role at [facility]. voices understanding and consents to assessment at this time. Care providers, pharmacy, and demographics verified/updated at this time. PCP: TANIYA Carrera Specialists: Dr Parham--ortho Preferred Pharmacy: [facility] Retail Insurance: [employer] Prescription Benefit: Yes Living Will/HPOA: states pt does not currently have LW/HCPOA and declines info at this time. LNOK: , Kariem. Living Arrangements: Lives w/ Karime, and 2 teenage daughters. Independent prior to surgery. Ramp entrance Transportation: Pt/ DME: Has the following DME: shower chair, raised toilet seat, lift chair. states pt has been using a walker since surgery, but states, He is hoping he can upgrade to a cane before he goes home. made aware, if pt does need a walker prior to discharge, CM can help w/getting it. She was also made aware insurance does not cover for cost of cane and instructed on locations these can be purchased at. Discussed local DME companies. states [employer]. HHC/SNF: No history of either and no needs identified. states they may decide to do therapy in a few months, but she is not sure yet. wishes for pt to return home and states has no concerns with him going home at time of discharge. CM to follow for any further discharge planning/needs. voices no further concerns/needs at this time. Advised her to ask for CM if any questions/concerns/needs arise. Voices understanding. PLAN: Home w/spousal support and discharge plans in place. CM to follow for possible need of walker at d/c. Ciro ASCENCIO RN, CM
--- NOTE | 2020-10-19 13:36 | NURSING ---
page out for dr gray, pt anxious to have scanlon removed.
[2020-10-19 14:00] VITALS: BP 114/71; PULSE 109; RESP 16; TEMP 36.8; O2SAT 99
--- NOTE | 2020-10-19 17:14 | PCM.PN.ORT ---
Objective Data Lab / Micro Data Result Diagrams: 10/20/20 05:37 10/20/20 05:37
[2020-10-19 20:13] VITALS: BP 123/82; PULSE 101; RESP 17; TEMP 37.2; O2SAT 99
[2020-10-19] MEDS: Zolpidem Tartrate 5 MG Tablet PO (20:15)
[2020-10-20] MEDS: oxyCODONE 5 MG Tablet PO ×5 (00:55→20:10)
[2020-10-20 02:42] VITALS: BP 139/85; PULSE 104; RESP 17; TEMP 37.2; O2SAT 94
[2020-10-20] MEDS: Gabapentin 300 MG Capsule PO ×3 (05:39→22:11)
[2020-10-20 05:49] LABS: Absolute Lymphocyte Count 1.87 X10^3/uL (0.83-4.51); Absolute Neutrophil Count 9.2 X10^3/uL (2.0-7.7); Basophil# 0.04 X10^3/uL; Basophil% 0.3 % (0-1); Eosinophil# 0.04 X10^3/uL; Eosinophils% 0.3 % (0-5); Hematocrit 46.8 % (40-54); Hemoglobin 15.3 g/dL (13.0-16.5); Lymphocyte # 1.87 X10^3/ul (0.83-4.51); Lymphocyte % 14.7 % (19-41); Mean Corp Hgb Conc 32.7 g/dL (32-36); Mean Corpuscular Hgb 29.5 pg (27.0-32.0); Mean Corpuscular Volume 90.3 fL (80-94); Mean Platelet Vol. 10.9 fl (6.2-12.0); Monocyte# 1.45 X10^3/uL; Monocyte% 11.4 % (0-10); NRBC Flagged by Analyzer 0 % (0-5); Neutrophil # 9.24 X10^3/uL (2.7-7.7); Platelet Count 131 K/mm3 (150-450); RBC Distribution Width CV 12.4 % (11.6-14.6); RBC Distribution Width SD 40.9 fl (35.1-43.9); Red Blood Count 5.18 M/mm3 (4.6-6.2); White Blood Count 12.7 K/mm3 (4.4-11.0)
[2020-10-20 06:14] LABS: Anion Gap 5 (5-15); BUN 7 mg/dL (7-18); BUN/Creat Ratio 7.2 RATIO (10-20); Calcium,Total 8.4 mg/dL (8.5-10.1); Chloride 99 mmol/L (98-107); Creatinine, Serum 0.97 mg/dL (0.70-1.30); EST Glomerular Filtration Rate 95 mL/min (>60); Est Glom Filt Rate - Afr Amer 115 mL/min (>60); Estimated Creatinine Clearance 112.89 ml/min; Glucose 104 mg/dL (74-106); Magnesium 1.7 mg/dL (1.6-2.6); Potassium 3.9 mmol/L (3.5-5.1); Sodium Level 137 mmol/L (136-145)
--- NOTE | 2020-10-20 07:15 | PCM.PN.HOSP ---
Subjective Subjective Postoperative day 2, patient seen pain is well controlled Objective Data Objective Data Vital Signs: Vital Signs Temp Pulse Resp BP Pulse Ox 98.9 F 104 H 17 139/85 H 94 10/20/20 02:42 10/20/20 02:42 10/20/20 02:42 10/20/20 02:42 10/20/20 02:42 Oxygen Flow Rate (L/min) 6 Oxygen Delivery Method Room Air Weight: 80.2 kg Body Mass Index (BMI) 25.3 Intake & Output: Intake and Output for Last 24 Hours 10/18/20 10/19/20 10/20/20 23:59 23:59 23:59 Intake Total 4380 / 4380 4528.33 / 4528.33 1100 / 1100 Output Total 3400 / 3400 4550 / 4550 Balance 980 / 980 -21.67 / -21.67 1100 / 1100 Lab / Micro Data Result Diagrams: 10/20/20 05:37 10/20/20 05:37 Labs: Laboratory Results - last 24 hr 10/20/20 10/20/20 05:37 05:37 WBC 12.7 H RBC 5.18 Hgb 15.3 Hct 46.8 MCV 90.3 MCH 29.5 MCHC 32.7 RDW Std Deviation 40.9 RDW Coeff of Juliana 12.4 Plt Count 131 L MPV 10.9 Immature Gran % (Auto) 0.300 Neut % (Auto) 73.0 H Lymph % (Auto) 14.7 L [place] % (Auto) 11.4 H Eos % (Auto) 0.3 Baso % (Auto) 0.3 Absolute Neuts (auto) 9.2 H Absolute Lymphs (auto) 1.87 Nucleated RBC % 0 Sodium 137 Potassium 3.9 Chloride 99 Carbon Dioxide 33.0 H Anion Gap 5 BUN 7 Creatinine 0.97 Estim Creat Clear Calc 112.89 Est GFR (MDRD) Af Amer 115 Est GFR (MDRD) Non-Af 95 BUN/Creatinine Ratio 7.2 L Glucose 104 Calcium 8.4 L Magnesium 1.7 Micro: Microbiology 10/17/20 10:00 Interface Orders SARS-CoV-2 Antigen (Rapid) - Final 10/12/20 10:31 Swab (Method) Nasal Screen MRSA/MSSA - Final Physical Exam Narrative GENERAL: cooperative HEENT: Atraumatic; EYES; Anicteric, Normal Conjunctiva NECK; supple, normal thyroid, RESPIRATORY: Diminished to auscultation CARDIOVASCULAR: Regular S1 S2, GI: soft, normoactive bowel sounds, : No Renal angle tenderness; EXTREMITIES: No edema, no clubbing, NEURO: Awake; no lateralizing signs. SKIN: No Rash PSYCH; Flat affect Assessment & Plan Assessment/Plan (1) HNP (herniated nucleus pulposus), lumbar: PLAN: Patient is a 31-year-old male with a history of herniated disc for which he underwent a spinal fusion of L5 and S1 on 10/18/2020 1. Herniated disc ?Status post spinal fusion of L5 and S1 on 10/18/2020. Patient postoperative orders including PT OT, DVT prophylaxis and pain management addressed by primary service will follow ?10/20/2020; patient seen pain is well controlled Visit Charges Inpatient E&M: 79836 Subs Hosp L1
[2020-10-20 08:13] VITALS: O2SAT 92
[2020-10-20 09:20] VITALS: BP 124/77; PULSE 102; RESP 18; TEMP 36.9; O2SAT 99
[2020-10-20] MEDS: Famotidine 20 MG Tablet PO ×2 (09:39→22:10)
[2020-10-20] MEDS: Senna/Docusate Sodium 1 Tablet 2 TABLET PO ×2 (09:39→22:11)
[2020-10-20] MEDS: Lactated Ringers 1,000 ML 100 ML IV ×2 (11:32→22:11)
[2020-10-20 14:17] VITALS: BP 130/81; PULSE 96; RESP 16; TEMP 37.1; O2SAT 98
--- NOTE | 2020-10-20 16:11 | PCM.PN.ORT ---
Subjective Subjective Patient ended state that he is doing well today. He states that he has not had any more radicular leg pain postoperative like he was having preop. Patient has been up walking stating that he feels stable and strong although does get a little wobbly the longer he is on his feet. He has minimal incisional pain that is well controlled with current pain medications. He denies any abdominal pain, nausea/vomiting, calf tenderness or pain, headache or visual disturbances. Objective Data Objective Data Vital Signs: Vital Signs Temp Pulse Resp BP Pulse Ox 98.8 F 96 16 130/81 H 98 10/20/20 14:17 10/20/20 14:17 10/20/20 14:17 10/20/20 14:17 10/20/20 14:17 Oxygen Flow Rate (L/min) 6 Oxygen Delivery Method Room Air Weight: 176 lb 12.972 oz Body Mass Index (BMI) 25.3 Intake & Output: Intake and Output for Last 24 Hours 10/18/20 10/19/20 10/20/20 23:59 23:59 23:59 Intake Total 4380 / 4380 4528.33 / 4528.33 2520 / 2520 Output Total 3400 / 3400 4550 / 4550 Balance 980 / 980 -21.67 / -21.67 2520 / 2520 Lab / Micro Data Result Diagrams: 10/20/20 05:37 10/20/20 05:37 Labs: Laboratory Results - last 24 hr 10/20/20 10/20/20 05:37 05:37 WBC 12.7 H RBC 5.18 Hgb 15.3 Hct 46.8 MCV 90.3 MCH 29.5 MCHC 32.7 RDW Std Deviation 40.9 RDW Coeff of [place] 12.4 Plt Count 131 L MPV 10.9 Immature Gran % (Auto) 0.300 Neut % (Auto) 73.0 H Lymph % (Auto) 14.7 L [place] % (Auto) 11.4 H Eos % (Auto) 0.3 Baso % (Auto) 0.3 Absolute Neuts (auto) 9.2 H Absolute Lymphs (auto) 1.87 Nucleated RBC % 0 Sodium 137 Potassium 3.9 Chloride 99 Carbon Dioxide 33.0 H Anion Gap 5 BUN 7 Creatinine 0.97 Estim Creat Clear Calc 112.89 Est GFR (MDRD) Af Amer 115 Est GFR (MDRD) Non-Af 95 BUN/Creatinine Ratio 7.2 L Glucose 104 Calcium 8.4 L Magnesium 1.7 Micro: Microbiology 10/17/20 10:00 Interface Orders SARS-CoV-2 Antigen (Rapid) - Final 10/12/20 10:31 Swab (Method) Nasal Screen MRSA/MSSA - Final Physical Exam GI soft to palpation, non-tender and non-distended Palpation: soft Back/Spine Thoracic Spine / Upper Back: Negative for paraspinal muscle tenderness or paraspinal muscle spasm Lumbar Spine / Lower Back: lumbar spinal tenderness L4 and L5 (Minor over the incision site) Skin no rashes or lesions noted Skin Narrative: Incisional sites continue to have occlusive dressings over top of both on the left lower abdomen as well as in on the midline of the lumbar spine. Occlusive dressings on the spine show some minor bleeding at the same time no saturation and continued occlusion. There is no surrounding erythema, induration, tenderness, or warmth around the dressing. Rashes: no rashes Wounds: wounds noted Assessment & Plan Assessment/Plan (1) S/P lumbar fusion: PLAN: Patient seen today at his bedside up in the reclining chair 2 days postop for anterior lumbar interbody fusion. Patient is doing very well at this time stating he has had resolution of the radicular pain he was having preoperatively. His current incisional pain and lumbar pain is well controlled with medications. He has been ambulating with a walker and assistance feeling stable/sturdy without any concerns or complaints. He states that he has not had a bowel movement at the same time has felt like he was going to pass gas. Nursing notes increasing bowel sounds. At this time patient is to continue with his current medical management. He should continue with compression stockings as well as ambulation with PT/OT and nursing assistance otherwise. He should continue with his compression stockings while in the hospital. We will continue a clear liquid diet at this time. We will continue to leave the dressing in place for another 24 hours at that time we will be able to remove the dressing. He should continue all other medical management. (2) HNP (herniated nucleus pulposus), lumbar:
[2020-10-20 20:01] VITALS: BP 123/85; PULSE 104; RESP 16; TEMP 37.1; O2SAT 97
[2020-10-21 02:27] VITALS: BP 130/78; PULSE 96; RESP 18; TEMP 37.1; O2SAT 97
[2020-10-21] MEDS: oxyCODONE 5 MG Tablet PO ×3 (03:38→13:17)
[2020-10-21 05:41] LABS: Absolute Lymphocyte Count 1.27 X10^3/uL (0.83-4.51); Absolute Neutrophil Count 6.7 X10^3/uL (2.0-7.7); Basophil# 0.04 X10^3/uL; Basophil% 0.4 % (0-1); Eosinophil# 0.23 X10^3/uL; Eosinophils% 2.5 % (0-5); Hemoglobin 15.6 g/dL (13.0-16.5); Lymphocyte # 1.27 X10^3/ul (0.83-4.51); Lymphocyte % 13.7 % (19-41); Mean Corp Hgb Conc 32.5 g/dL (32-36); Mean Corpuscular Hgb 28.9 pg (27.0-32.0); Mean Corpuscular Volume 88.9 fL (80-94); Mean Platelet Vol. 11.3 fl (6.2-12.0); Monocyte# 1.01 X10^3/uL; Monocyte% 10.9 % (0-10); NRBC Flagged by Analyzer 0 % (0-5); Neutrophil # 6.67 X10^3/uL (2.7-7.7); Neutrophil % 72.1 % (47-70); Platelet Count 141 K/mm3 (150-450); RBC Distribution Width CV 12.3 % (11.6-14.6); RBC Distribution Width SD 39.9 fl (35.1-43.9); White Blood Count 9.3 K/mm3 (4.4-11.0)
[2020-10-21 06:17] LABS: Anion Gap 7 (5-15); BUN 8 mg/dL (7-18); BUN/Creat Ratio 10.2 RATIO (10-20); Calcium,Total 8.8 mg/dL (8.5-10.1); Chloride 101 mmol/L (98-107); Creatinine, Serum 0.78 mg/dL (0.70-1.30); EST Glomerular Filtration Rate 121 mL/min (>60); Est Glom Filt Rate - Afr Amer 147 mL/min (>60); Estimated Creatinine Clearance 140.38 ml/min; Glucose 98 mg/dL (74-106); Potassium 3.9 mmol/L (3.5-5.1); Sodium Level 138 mmol/L (136-145)
[2020-10-21] MEDS: Gabapentin 300 MG Capsule PO ×2 (06:21→13:17)
--- NOTE | 2020-10-21 07:48 | PN.HOSP_ITS ---
Subjective Subjective Patient seen pain is relatively well controlled. Plan is for patient to be discharged today. Objective Data Objective Data Vital Signs: Vital Signs Temp Pulse Resp BP Pulse Ox 98.8 F 96 18 130/78 H 97 10/21/20 02:27 10/21/20 02:27 10/21/20 02:27 10/21/20 02:27 10/21/20 02:27 Oxygen Flow Rate (L/min) 6 Oxygen Delivery Method Room Air Weight: 80.2 kg Body Mass Index (BMI) 25.3 Intake & Output: Intake and Output for Last 24 Hours 10/19/20 10/20/20 10/21/20 23:59 23:59 23:59 Intake Total 4528.33 / 4528.33 3520 / 3520 600 / 600 Output Total 4550 / 4550 Balance -21. / -. 3520 / 3520 600 / 600 Lab / Micro Data Result Diagrams: 10/21/20 04:40 10/21/20 04:40 Labs: Laboratory Results - last 24 hr 10/21/20 10/21/20 04:40 04:40 WBC 9.3 RBC 5.40 Hgb 15.6 Hct 48.0 MCV 88.9 MCH 28.9 MCHC 32.5 RDW Std Deviation 39.9 RDW Coeff of Juliana 12.3 Plt Count 141 L MPV 11.3 Immature Gran % (Auto) 0.400 Neut % (Auto) 72.1 H Lymph % (Auto) 13.7 L [place] % (Auto) 10.9 H Eos % (Auto) 2.5 Baso % (Auto) 0.4 Absolute Neuts (auto) 6.7 Absolute Lymphs (auto) 1.27 Nucleated RBC % 0 Sodium 138 Potassium 3.9 Chloride 101 Carbon Dioxide 30.0 Anion Gap 7 BUN 8 Creatinine 0.78 Estim Creat Clear Calc 140.38 Est GFR (MDRD) Af Amer 147 Est GFR (MDRD) Non-Af 121 BUN/Creatinine Ratio 10.2 Glucose 98 Calcium 8.8 Micro: Microbiology 10/17/20 10:00 Interface Orders SARS-CoV-2 Antigen (Rapid) - Final 10/12/20 10:31 Swab (Method) Nasal Screen MRSA/MSSA - Final Physical Exam Narrative GENERAL: cooperative HEENT: Atraumatic; EYES; Anicteric, Normal Conjunctiva NECK; supple, normal thyroid, RESPIRATORY: Diminished to auscultation CARDIOVASCULAR: Regular S1 S2, GI: soft, normoactive bowel sounds, : No Renal angle tenderness; EXTREMITIES: No edema, no clubbing, NEURO: Awake; no lateralizing signs. SKIN: No Rash PSYCH; Flat affect Assessment & Plan Assessment/Plan (1) HNP (herniated nucleus pulposus), lumbar: PLAN: Patient is a 31-year-old male with a history of herniated disc for which he underwent a spinal fusion of L5 and S1 on 10/18/2020 1. Herniated disc ?Status post spinal fusion of L5 and S1 on 10/18/2020. Patient postoperative orders including PT OT, DVT prophylaxis and pain management addressed by primary service will follow ?10/20/2020; patient seen pain is well controlled Visit Charges Inpatient E&M: 60770 Subs Hosp L1
[2020-10-21] MEDS: Lactated Ringers 1,000 ML 100 ML IV (09:12)
[2020-10-21] MEDS: Famotidine 20 MG Tablet PO (09:13)
[2020-10-21 09:15] VITALS: BP 117/74; PULSE 94; RESP 16; TEMP 36.9; O2SAT 100
[2020-10-21] MEDS: Senna/Docusate Sodium 1 Tablet 2 TABLET PO (09:19)
--- NOTE | 2020-10-21 12:35 | PCM.DC.SUM ---
Providers Date of Admission: 10/18/20 Primary Care Physician: MARSHALL Cohen Consultations 10/18/20 13:24 Consult: Hospitalist Routine Consulting Provider: Sandi Louis Reason for Consult: Medical Management EMERGENT Consult: No MD Notified: Yes Date Notified:: 10/18/20 Time Notified: 15:52 Method of Notification: Text Reason For Visit: ERAS, 360 FUSION L5 - S1 Diagnosis Discharge Diagnosis (1) HNP (herniated nucleus pulposus), lumbar: Status: Acute Code(s): M51.26 - Other intervertebral disc displacement, lumbar region Medications at Discharge Home Medications gabapentin 300 mg capsule 300 mg PO TID cap 07/20/20 Hospital Course Summary of Care Provided Hospital Course: .This patient was admitted on 18 October a 360 degree fusion The date of admission he underwent at the L5-S1 level. He tolerated the procedure well. Hospital course was relatively unremarkable. He got temporary ileus as they all do for 360s which we do not even consider a complication anymore. The ileus is now resolved. He has good bowel sounds his abdomen is soft and he has flatulence. At discharge both of his dressings are dry he is neurologically intact. We gave him directions regarding his activities. His his therapy will consist of ambulation. He is to be able to walk a mile a month from today. He will start driving on until after I see him in the office in 13 days. The dressings are to come off on Saturday and on Saturday he is to shower. He is told to continue his full liquid diet for at least another day or 2 and then start a soft diet and progress it after that. He was given [place] 03/05/2025's for pain #40. He can take 1 every 6 hours as needed. Should he have any kind of problem or something should not seem right he is to call my office where they can get in touch with me if needed. I will see him again in 13 days. ABG / Lab / Microbiology Data Result Diagrams: 10/21/20 04:40 10/21/20 04:40 Laboratory: Laboratory Results - last 24 hr 10/21/20 10/21/20 04:40 04:40 WBC 9.3 RBC 5.40 Hgb 15.6 Hct 48.0 MCV 88.9 MCH 28.9 MCHC 32.5 RDW Std Deviation 39.9 RDW Coeff of Juliana 12.3 Plt Count 141 L MPV 11.3 Immature Gran % (Auto) 0.400 Neut % (Auto) 72.1 H Lymph % (Auto) 13.7 L [place] % (Auto) 10.9 H Eos % (Auto) 2.5 Baso % (Auto) 0.4 Absolute Neuts (auto) 6.7 Absolute Lymphs (auto) 1.27 Nucleated RBC % 0 Sodium 138 Potassium 3.9 Chloride 101 Carbon Dioxide 30.0 Anion Gap 7 BUN 8 Creatinine 0.78 Estim Creat Clear Calc 140.38 Est GFR (MDRD) Af Amer 147 Est GFR (MDRD) Non-Af 121 BUN/Creatinine Ratio 10.2 Glucose 98 Calcium 8.8 Microbiology: Microbiology 10/17/20 10:00 Interface Orders SARS-CoV-2 Antigen (Rapid) - Final 10/12/20 10:31 Swab (Method) Nasal Screen MRSA/MSSA - Final D/C Instructions Discharge Diet: - (Full liquid diet for 1 day. Then he is to advance it to a soft diet for a couple of days and then he can eat a regular full diet.) Discharge Activity: May not drive while taking narcotic pain medications. May shower in (days): 1 Ice area for (Minutes): 20 (Ice area for 20 minutes each hour while awake) Weight Bearing Status: Weight bearing as tolerated Call your doctor if your incision/area has: Continuous Slow Oozing, Sudden Increased Bleeding, Increased Pain/ Swelling, Increased Redness and Foul Smelling Discharge Call your doctor if you observe: Fever of 101 or Higher, Coldness, Increased Pain, Numbness or Tingling and Change in Color Meaningful Use Info Meaningful Use Diagnoses (Choose all that apply): None applicable Discharge Plan Admission Admit Date/Time: 10/18/20 05:32 Attending Provider: Andrew Moreira Primary Care Provider: Kyle Carrera NP Consulting Providers: Sandi Louis Instructions Patient Instructions: ED Degenerative Disk Disease Discharge Orders/Prescriptions Prescriptions: Continued gabapentin 300 mg capsule 300 mg PO TID RF: 0 Referrals / Follow Up: Fritz Parham DO [STAFF PHYSICIAN] - Within 2 Weeks Kyle Carrera NP, [employer] [Primary Care Provider] - Disposition Disposition (needs filled in before D/C Order can be placed): Home, self care
[2020-10-21 13:30] VITALS: BP 120/78; PULSE 91; RESP 18; TEMP 36.4; O2SAT 100
--- NOTE | 2020-10-21 14:11 | PHA.DC.MR ---
Pharmacy Service has performed discharge medication reconciliation for this patient. The patient's discharge medication list was reviewed for discrepancies and discrepancies were resolved. Home Medications gabapentin 300 mg capsule 300 mg PO TID cap 07/20/20
--- NOTE | 2020-10-21 14:56 | CASEMGMT ---
ANDREA PIERCE updated that patient will need walker at discharge. Script received from Dr. Parham's office. ANDREA PIERCE sent referral and arranged for deliver to patient's room prior to discharge. ANDREA PIERCE updated the patient and nurse.
[2020-10-21 15:05] VITALS: O2SAT 93
== END 2020-10-21 16:00 | disposition home or self-care (01) | DRG 304 ==
LOC: ACINP 05:33 → MS3 16:26
PROVIDERS: Anesthesiology; Admitting Provider Orthopaedic Surgery; PCP Nurse Practitioner Primary Care; Referring Provider Orthopaedic Surgery; Visit Provider Internal Medicine
PROC: 0SG30A0 Fusion of Lumbosacral Joint with Interbody Fusion Device, Anterior Approach, Anterior Column, Open Approach (ICD-10-PCS; principal; 2020-10-18 07:00)
DX: M51.27 Other intervertebral disc displacement, lumbosacral region (principal); Z20.828 Contact with and (suspected) exposure to other viral communicable diseases; F17.200 Nicotine dependence, unspecified, uncomplicated; K56.7 Ileus, unspecified
CPT/HCPCS: 36415; 72020; 80048; 82962; 83735; 85025; 86703; 86704; 86705; 86706; 86708; 86709; 86803; 86850; 86900; 86901; 87081; 87340; 87426; 88304; 93005; 94762; 97162; 97530; 97802; 99251; C1713; C9803; J7120; A4216; G0463; J2405

== ENCOUNTER → 2022-06-22 | Outpatient (CLI) | payer MEDICAID, SELFPAY ==
--- NOTE | 2022-06-22 17:42 | MRI_ITS ---
STUDY: MRI LUMBAR SPINE WITHOUT CONTRAST REASON FOR EXAM: Male, 32 years old. pain TECHNIQUE: Standardized fat and water weighted pulse sequences were obtained in the sagittal and axial planes. COMPARISON: None FINDINGS: T12-L1: Normal endplates. Normal disc height, hydration and morphology. Normal bilateral facet joints. Normal central canal and bilateral lateral recesses. Normal bilateral intervertebral neural foramina. Normal lumbar lordosis. There is no substantial scoliosis. Normal conus medullaris that terminates at L1 L1-2: Narrowed disc space with desiccation of the disc and minor annular bulge with tiny right paracentral disc protrusion.. Normal bilateral facet joints. Normal central canal and bilateral lateral recesses. Normal bilateral intervertebral neural foramina. L2-3: Normal endplates. Normal disc height, hydration and morphology. Normal bilateral facet joints. Normal central canal and bilateral lateral recesses. Normal bilateral intervertebral neural foramina. L3-4: Normal endplates. Narrowed disc height, desiccation and mild annular bulge with small central disc protrusion... Normal bilateral facet joints. Mild narrowing of the central canal. Normal bilateral lateral recesses.. Mild to moderate bilateral neural foraminal encroachment. L4-5: Normal endplates. Normal disc height, hydration and morphology. Mild facet arthropathy.. Normal central canal and bilateral lateral recesses. Minor bilateral neural foraminal encroachment. L5-S1: Postop change status post anterior and posterior fusion.. Tiny central disc protrusion. Normal bilateral facet joints. Normal central canal and bilateral lateral recesses. Normal bilateral intervertebral neural foramina. Normal visualized sacral ala. Normal visualized paraspinous soft tissue structures. MRI/Spine Lumbar (Routine) IMPRESSION: No evidence for acute fracture or other significant bony pathology.. Status post anterior and posterior fusion at L5-S1. Mild spinal stenosis at L3-4 and L4-5 secondary to bulging annulus and facet arthropathy. Other findings as above Electronically Signed: Jacques Ochoa MD at 18:53 EST ,
== END | disposition home or self-care (01) ==
LOC: MRI 17:44
PROVIDERS: PCP Internal Medicine; Referring Provider Orthopaedic Surgery; Visit Provider Orthopaedic Surgery
DX: M51.26 Other intervertebral disc displacement, lumbar region (principal); Z98.1 Arthrodesis status
CPT/HCPCS: 72148

== ENCOUNTER 2022-12-29 14:40 | Emergency (ER) | payer MEDICAID, SELFPAY ==
[2022-12-29 14:40] VITALS: BP 126/88; PULSE 77; RESP 16; TEMP 36.8; O2SAT 98; BMI 23.6
--- NOTE | 2022-12-29 14:56 | EX.ED.DYSGE1 ---
HPI <MARSHALL Jaimes - Last Filed: 12/29/22 15:33> History of Present Illness Chief Complaint: Laceration Narrative Narrative: Patient is a 32-year-old male with no significant medical history presents to the emergency department the right tibial injury. Patient was helping a body unload a trailer when he struck his garibay on a piece of metal trailer. Patient does have a laceration. He is concerned there might be metal in it. It did strike his leg pretty hard and he is concerned for the bone. He denies any other injury. His tetanus is not up-to-date [facility] <MARSHALL Jaimes - Last Filed: 12/29/22 15:33> [facility] Medical History h/o broken arm Smoker Wears contact lenses Wears glasses Home Medications tramadol 50 mg tablet 50 mg PO Q8H PRN 07/02/22 [History Last Taken Unknown] Allergy/AdvReac Type Severity Reaction Status Date / Time mushroom [mushrooms] Allergy Severe Anaphylaxis Verified 12/29/22 14:42 Surgical History H/O carpal tunnel repair H/O knee surgery History of tonsillectomy and adenoidectomy Hx of wisdom tooth extraction Social History adopted: Yes household members: spouse and children housing: house number of children: 2 current occupational status: employed Smoking Status: Heavy Smoker (>10/day) Tobacco: How many years used: 10 alcohol intake: never what type of physical activity do you participate in: none do you feel safe at home: Yes ROS <MARSHALL Jaimes - Last Filed: 12/29/22 15:33> ROS ED ROS Narrative Constitutional: Negative for fever, chills, weight loss, weakness Eyes: Negative for vision loss, vision change, double vision ENT: Negative for any sore throat, ear pain, congestion Cardiovascular: Negative for any chest pain, tightness, palpitations Respiratory: Negative for any cough, sputum production, hemoptysis, dyspnea, dyspnea on exertion, orthopnea Gastrointestinal: Negative for any abdominal pain, nausea, vomiting, diarrhea, constipation, blood in stool, blood in vomit : Negative for any urinary frequency, dysuria, retention, blood in urine Muscle skeletal: Negative for any muscle joint pain, stiffness, myalgias, arthralgias, neck pain, back pain. Positive for right leg pain, right garibay pain Neurological: Negative for any headache, syncope, numbness or tingling, dizziness Skin: Negative for any rashes, lumps, itching, abrasions, lacerations Psychiatric: Negative for any depression, anxiety, stress, suicidal ideation, homicidal ideation Hematologic: Negative for any easy bruising, excessive bruising, easy bleeding Allergies: Negative for any eczema, hives, rash EXAM <MARSHALL Jaimes - Last Filed: 12/29/22 15:33> Physical Exam Narrative Exam Narrative: Vital signs reviewed. HEET: Head normocephalic atraumatic, TMs clear bilaterally. Posterior pharynx is clear, moist mucous membranes. Nares clear bilaterally. Neck: Supple with no lymphadenopathy or tenderness. No signs of meningismus, negative jolt sign. Cardiac: Regular rate and rhythm no murmurs gallops or rubs, equal peripheral pulses bilaterally. Respiratory: Lungs clear to auscultation bilaterally. No chest tenderness. Abdomen: Soft, nontender, nondistended. No abdominal bruit or pulsatile masses. No hepatosplenomegaly Extremities: No peripheral edema, no signs of gross trauma or deformity. Active full range of motion of all extremities. Patient has a small laceration from the impact of the trailer to the anterior right lower leg below the knee. There is no deformity noted. No significant ecchymosis. Neuro: Cranial nerves II through XII intact, no focal neurological deficits. Skin: Clean dry and intact with no rash, purpura, petechiae, vesicles or pustules. Backs/flank: No CVA tenderness, no midline spinal tenderness, no deformity. Psych: Normal mood and affect. No SI, HI or acute psychosis. Const Vital Signs: 12/29/22 14:40 Temperature 98.2 F Temperature Source Temporal Pulse Rate 77 Respiratory Rate 16 Blood Pressure 126/88 H Blood Pressure Mean 100 Pulse Ox 98 Oxygen Delivery Method Room Air <Dr. Alex Manzano, DO - Last Filed: 12/29/22 15:38> Physical Exam Const Vital Signs: 12/29/22 14:40 Temperature 98.2 F Temperature Source Temporal Pulse Rate 77 Respiratory Rate 16 Blood Pressure 126/88 H Blood Pressure Mean 100 Pulse Ox 98 Oxygen Delivery Method Room Air <Dr. Jacques Marcus, DO - Last Filed: 12/29/22 23:59> Physical Exam Const Vital Signs: 12/29/22 14:40 Temperature 98.2 F Temperature Source Temporal Pulse Rate 77 Respiratory Rate 16 Blood Pressure 126/88 H Blood Pressure Mean 100 Pulse Ox 98 Oxygen Delivery Method Room Air MDM <MARSHALL Jaimes - Last Filed: 12/29/22 15:33> [facility] Radiography Diagnostic Testing: Clinical Impression(s) from Imaging Studies Tibia/Fibula X-Ray 12/29/22 15:05 IMPRESSION: No acute bony injury. Electronically Signed: Gabino Gonzalez MD at 15:29 EDT , Treatment and Re-Evaluation :: Patient appears well, patient appears nontoxic, vital signs are stable. Patient presents to the emergency department for injury to the right lower leg, laceration of the right lower leg. Patient will receive an x-ray, this is concerning for any osseous abnormality as well as foreign body. Patient's tetanus vaccination will be updated today. X-ray was completed, 2 view of the tibia family, there is no signs of foreign body, no fracture. I was able to anesthetize the area, irrigated copiously with 250 cc of normal saline. Patient's tetanus was updated. I did place 2 simple noted sutures of 4-0 Ethilon. Patient tolerated well, patient on these removed in 7 to 10 days. Patient struck remove for any redness, patient stable for discharge. <Dr. Alex Manzano, DO - Last Filed: 12/29/22 15:38> [facility] Narrative Medical decision making narrative: I have personally performed a face to face assessment of the patient and have reviewed the SHEMAR Note. I performed a substantive portion of the visit including all aspects of the following. My piper findings include: History: Patient presents with a laceration to his right lower leg that occurred today. Patient states he hit it on a trailer. Patient denies any paresthesias or weakness. Patient was ambulatory after the accident. Patient denies any other injuries. Patient states the bleeding stopped after several minutes of pressure. Exam: Vital signs are stable. Patient is afebrile. Patient is in no acute distress. Skin is warm and dry. There is a 1.5 cm full-thickness linear laceration over the anterior aspect of the right lower leg there is mild gapping of the wound margins. There is no active bleeding noted. There is no foreign body noted. Strength is 5/5 bilaterally in the lower extremities. There are no sensory deficits noted. Pedal pulses are equal bilaterally. Medical Decision Making: Differential diagnosis includes laceration, foreign body, contusion, and fracture. X-rays of the right tibia-fibula will be obtained to assess for fracture and foreign body. X-rays of the right tibia and fibula were obtained. There are 2 views. On my independent interpretation, there is no acute fracture or foreign body. There is no soft tissue swelling. Radiologist also interpreted the x-rays and agrees. The wound was cleaned and irrigated with copious amounts normal saline. The wound was closed by the SHEMAR under my supervision with 2 simple interrupted #4-0 nylon sutures. Patient tolerated procedure well. Bacitracin dressing was applied. Patient was instructed to keep the wound clean and dry. Patient was instructed to follow-up with his primary care physician in 5 to 7 days. Patient was given a tetanus booster. Patient understood and was agreeable with the plan. All questions were answered. Radiography Diagnostic Testing: Clinical Impression(s) from Imaging Studies Tibia/Fibula X-Ray 12/29/22 15:05 IMPRESSION: No acute bony injury. Electronically Signed: Gabino Gonzalez MD at 15:29 EDT , Treatment and Re-Evaluation :: Patient appears well, patient appears nontoxic, vital signs are stable. Patient presents to the emergency department for injury to the right lower leg, laceration of the right lower leg. Patient will receive an x-ray, this is concerning for any osseous abnormality as well as foreign body. Patient's tetanus vaccination will be updated today. X-ray was completed, 2 view of the tibia family, there is no signs of foreign body, no fracture. I was able to anesthetize the area, irrigated copiously with 250 cc of normal saline. Patient's tetanus was updated. I did place 2 simple interrupted sutures of 4-0 Ethilon. Patient tolerated well, patient was instructed to have these removed in 7 to 10 days. Patient was instructed to return for any redness, patient stable for discharge. <Dr. Jacques Marcus, DO - Last Filed: 12/29/22 23:59> [facility] Narrative Medical decision making narrative: I have personally performed a face to face assessment of the patient and have reviewed the SHEMAR Note. I performed a substantive portion of the visit including all aspects of the following. My piper findings include: History: Patient presents with a laceration to his right lower leg that occurred today. Patient states he hit it on a trailer. Patient denies any paresthesias or weakness. Patient was ambulatory after the accident. Patient denies any other injuries. Patient states the bleeding stopped after several minutes of pressure. Exam: Vital signs are stable. Patient is afebrile. Patient is in no acute distress. Skin is warm and dry. There is a 1.5 cm full-thickness linear laceration over the anterior aspect of the right lower leg there is mild gapping of the wound margins. There is no active bleeding noted. There is no foreign body noted. Strength is 5/5 bilaterally in the lower extremities. There are no sensory deficits noted. Pedal pulses are equal bilaterally. Medical Decision Making: Differential diagnosis includes laceration, foreign body, contusion, and fracture. X-rays of the right tibia-fibula will be obtained to assess for fracture and foreign body. X-rays of the right tibia and fibula were obtained. There are 2 views. On my independent interpretation, there is no acute fracture or foreign body. There is no soft tissue swelling. Radiologist also interpreted the x-rays and agrees. The wound was cleaned and irrigated with copious amounts normal saline. The wound was closed by the SHEMAR under my supervision with 2 simple interrupted #4-0 nylon sutures. Patient tolerated procedure well. Bacitracin dressing was applied. Patient was instructed to keep the wound clean and dry. Patient was instructed to follow-up with his primary care physician in 5 to 7 days. Patient was given a tetanus booster. Patient understood and was agreeable with the plan. All questions were answered. Patient was seen by Dr. Manzano, not Dr Marcus. Radiography Diagnostic Testing: Clinical Impression(s) from Imaging Studies Tibia/Fibula X-Ray 12/29/22 15:05 IMPRESSION: No acute bony injury. Electronically Signed: Gabino Gonzalez MD at 15:29 EDT Reading Location ID and State: [facility] / [place] Tel , Service support , Discharge Plan Triage Chief Complaint: Laceration ED Midlevel Provider: Artis Martins ED Provider: Alex Manzano Dx/Rx/DC Orders Clinical Impression: Leg injury, Laceration of leg Instructions: ED Laceration Extremity Prescriptions: No Action tramadol 50 mg tablet 50 mg PO Q8H PRN Patient Comments: take 1 tablet by mouth every 8 hours NEEDED FOR PAIN Primary Care Provider: Kinza Salcido Referrals: Kinza Salcido MD [Primary Care Provider] - Activity Restrictions/Additional Instructions: Keep the area clean and dry. You may have these removed in 7 to 10 days. Return for any worsening symptoms. Your tetanus vaccination will be updated today. Disposition Disposition: Home, Self Care Discharge Date/Time: 12/29/22 16:10
--- NOTE | 2022-12-29 15:05 | RAD_ITS ---
INDICATION: Trauma, injury EXAMINATION/TECHNIQUE: X-RAY - RIGHT XR Tibia/Fibula 2 Views 2 VIEWS COMPARISON: None. FINDINGS: SOFT TISSUES: No soft tissue swelling or gas. No radiopaque foreign body. BONES/JOINTS: No acute fracture. Joint spaces anatomically aligned. No sclerotic or destructive changes observed. RAD/Tibia & Fibula 2 Views IMPRESSION: No acute bony injury. Electronically Signed: Gabino Gonzalez MD at 15:29 EDT ,
[2022-12-29] MEDS: Diphth,Pertuss(Acell),Tet Vac 0.5 ML Vial IM (15:47)
== END 2022-12-29 16:10 | disposition home or self-care (01) ==
PROVIDERS: Emergency Provider Emergency Medicine; PCP Internal Medicine; Visit Provider Emergency Medicine
DX: S81.811A Laceration without foreign body, right lower leg, initial encounter (principal); F17.200 Nicotine dependence, unspecified, uncomplicated; X58.XXXA Exposure to other specified factors, initial encounter; Z23 Encounter for immunization
CPT/HCPCS: 12001; 73590; 90471; 90715; 99282

== ENCOUNTER 2024-07-28 17:02 | Emergency (ER) | payer MEDICAID, SELFPAY ==
[2024-07-28 17:04] VITALS: BP 111/86; PULSE 104; RESP 18; TEMP 36.3; O2SAT 97; BMI 26.6
== END 2024-07-28 21:18 | disposition left against medical advice (07) ==
LOC: ED 21:27
PROVIDERS: PCP Internal Medicine
DX: Z53.21 Procedure and treatment not carried out due to patient leaving prior to being seen by health care provider (principal)